=== PATIENT | male | born 1945 | race Caucasian/White ===

== ENCOUNTER 2019-05-12 13:32 | Day surgery (SDC) | payer MEDICARE, OTHER ==
[~2019-05-12] VITALS: Ht 180.3 cm; Wt 73.6 kg
[2019-05-12] VITALS (8 sets, daily range): BP systolic 97–135; BP diastolic 47–78
[2019-05-12] MEDS ORDERED: fentaNYL/PF 50MCG/1 ML 2ML syringe ONE ×2 (14:04→16:14)
[2019-05-12] MEDS ORDERED: MIDAZolam 5mg/5ml vial ONE ×2 (14:05)
[2019-05-12] MEDS ORDERED: LIDOcaine Viscous 15ml cup ONE (14:05)
[2019-05-12] MEDS ORDERED: diphenhydrAMINE 50 mg/ml inj ONE (14:05)
[2019-05-12] MEDS ORDERED: glucagon, human recombinant 1mg kit ONE ×2 (14:05→14:06)
[2019-05-12] MEDS ORDERED: iohexol 300 MG/1 ML 50ml polymer ONE ×2 (14:05→15:59)
[2019-05-12] MEDS ORDERED: PANT-47 PO (14:20)
[2019-05-12] MEDS ORDERED: ASPI-1264 PO (14:21)
[2019-05-12] MEDS ORDERED: NIAC10002 PO (14:22)
[2019-05-12] MEDS ORDERED: FLEC100T2 PO (14:23)
[2019-05-12] MEDS ORDERED: VERA180T PO (14:23)
[2019-05-12] MEDS ORDERED: MULT-933 PO (14:24)
[2019-05-12] MEDS ORDERED: FLO0.4C PO (14:24)
[2019-05-12] MEDS ORDERED: levoFLOXACIN-Levaquin 500mg/D5 100 ML IV ONE (16:26)
[2019-05-12 18:14] LABS: HEMATOCRIT 37.1 % (42.0-52.0); HEMOGLOBIN 13.1 g/dl (14.0-17.9); MEAN CORPUSCULAR HEMOGLOBIN 34.8 PG (27.0-31.0); MEAN CORPUSCULAR HGB CONC 35.2 g/dL (33.0-36.5); MEAN CORPUSCULAR VOLUME 98.8 FL (78-98); MEAN PLATELET VOLUME 8.2 FL (7.4-10.4); PLATELET COUNT 232 X10'3 (140-440); RED BLOOD COUNT 3.76 X10'6 (4.70-6.10); RED CELL DISTRIBUTION WIDTH 15.1 % (11.5-14.5); WHITE BLOOD COUNT 5.3 X10'3 (4.5-11.0)
[2019-05-12 18:23] LABS: ALANINE AMINOTRANSFERASE 340 U/L (12-78); ALBUMIN 3.3 G/DL (3.4-5.0); ALKALINE PHOSPHATASE 793 IU/L (46-116); BILIRUBIN,TOTAL 21.6 MG/DL (0.1-1.0); BLOOD UREA NITROGEN 14 MG/DL (7-18); CALCIUM 9.2 MG/DL (8.5-10.1); CHLORIDE 101 MMOL/L (99-107); TOTAL CARBON DIOXIDE 26.3 MMOL/L (24-32)
[2019-05-12 18:42] LABS: ALBUMIN/GLOBULIN RATIO 0.8 (1.1-1.5); ASPARTATE AMINO TRANSFERASE 210 U/L (10-37); BUN/CREATININE RATIO 15.9 (5.4-32.0); CREATININE 0.88 MG/DL (0.60-1.10); GLUCOSE 99 MG/DL (70-104); TOTAL PROTEIN 7.3 G/DL (6.4-8.2); eGFR 84 ML/MIN
[2019-05-12 18:43] LABS: ANION GAP 9 (8-16); POTASSIUM 3.6 MMOL/L (3.5-5.1); SODIUM 136 MMOL/L (135-145)
[2019-05-12 18:49] LABS: TOTAL CELLS COUNTED 100
[2019-05-12 18:51] LABS: PLATELET ESTIMATE NORMAL; STOMATOCYTES FEW; TARGET CELLS 2+
== END 2019-05-12 18:35 | disposition home or self-care (01) ==
LOC: GI LAB 13:32
PROVIDERS: ATTEND Internal Medicine Gastroenterology
DX: R94.5 Abnormal results of liver function studies (principal); K83.1 Obstruction of bile duct; K86.89 Other specified diseases of pancreas; Z79.899 Other long term (current) drug therapy; R97.8 Other abnormal tumor markers
CPT/HCPCS: 36415; 43274; 80053; 85025; 86301; 99152; 99153; C1769; C1773; C1876; C2617; J1200; J1610; J1956; J2250; J3010; J7040; Q9967; 43261; 43262; 43277; A4620; G0500